=== PATIENT | male | born 1960 | race Caucasian/White ===

== ENCOUNTER → 2016-09-23 | Outpatient (CLI) | payer OTHER | END | disposition home or self-care (01) | LOC: C.LAB 11:36 | DX: Z02.83 Encounter for blood-alcohol and blood-drug test (principal) ==

== ENCOUNTER 2022-08-27 09:25 | Observation (INO) ==
--- NOTE | 2022-06-16 10:57 | PAT Medication Instructions ---
Medication Instructions Date of Service June 16, 2022 Home Medications acetaminophen 500 mg tablet 500 mg PO QID PRN Pain metoprolol succinate 50 mg tablet,extended release 24 hr 50 mg PO QAM olmesartan 20 mg tablet 20 mg PO QAM DO NOT take the morning of surgery olmesartan 20 mg tablet 20 mg PO QAM Take morning of surgery With a small sip of water, OTHERWISE NOTHING TO EAT OR DRINK AFTER MIDNIGHT: acetaminophen 500 mg tablet 500 mg PO QID PRN Pain (if needed) metoprolol succinate 50 mg tablet,extended release 24 hr 50 mg PO QAM Other Notes If you have any questions please call us at [phone] or [phone] or [phone] or [phone]
--- NOTE | 2022-06-19 10:35 | Anesthesiology Consultation ---
Date of Service June 19, 2022 Assessment & Plan (1) Encounter for pre-operative examination: - awaiting PCP clearance. - pt reports upcoming PCP clearance to be scheduled himself per pt. - excessive alcohol use: 6 beers nightly. - Outpatient joint assessment: Patient is currently scheduled for inpatient pathway. If re-evaluated pending system levels during current pandemic/surgeon requests outpatient pathway, patient is not recommended candidate for outpatient joint program from anesthesia standpoint. Chart Review Chart Review: Pending: Refer to Additional Notes / Consult section and Patient seen in Pre Admission Testing Teaching & Discussion Pre-Anesthesia Teaching/Discussion Notes: Instructed NPO after midnight before surgery, except medications with 15 cc of water. Medication instructions provided according to the PAT guidelines. History Surgery Operation Date: 07/29/22 08:50 Proposed Procedures p Right Total Knee Arthroplasty - Uday Tomas MD Height/Weight Height: 5 ft 10 in Weight: 61.3 kg Allergies Allergy/AdvReac Type Severity Reaction Status Date / Time No Known Allergies Allergy Verified 06/16/22 07:29 Medications Home Medications Medication Instructions Recorded Confirmed Last Taken acetaminophen 500 mg tablet 500 mg PO QID PRN Pain 06/16/22 06/16/22 Unknown metoprolol succinate 50 mg 50 mg PO QAM 06/16/22 06/16/22 Unknown tablet,extended release 24 hr olmesartan 20 mg tablet 20 mg PO QAM 06/16/22 06/16/22 Unknown Past Medical History Medical History (Updated 06/19/22 @ 10:32 by Jessica Hastings PA-C) Hypertension Patient denies h/o stroke, seizures, heart attack, heart failure, DM, blood clots or blood transfusions. Exercise / Class Metabolic Activity II 4-5 Yardwork/Stairs/Walk up hill (SOB with 1 FOS, ongoing x 2 years; denies change or worsening; denies chest discomfort) Past Family History Family History Mother Heart murmur Father Dementia Parkinson disease Past Surgical History Surgical History Hx of colonoscopy Past Anesthesia History No Hx of Anesthesia Complications and No Family Hx of Anesthesia Complications History of PONV No Hx of PONV and No Hx of Motion Sickness Social History Smoking Status: Current every day smoker (advised) tobacco type: cigarettes Smoking cigarettes per day: 10 Do You Dip or Chew Tobacco: Yes (1 CAN/1 WEEK; ADVISED) Hx Alcohol Use: Yes Alcohol type: beer alcohol intake frequency: 3 or more drinks per day (6 beers nightly; denies h/o alcohol withdrawal seizures or DTs) Hx Substance Use: No substance use type: does not use Review of Systems Occasional chronic cough, denies change or worsening. Improving with reduction in smoking. Patient denies chest pain, snoring, witnessed apneas, reflux, fever, chills, or palpitations. Physical Exam Vital Signs Vitals BP 160/92 P 75 TEMP 98.6 SP02 98% on RA RESP 17 Physical Alert, oriented and responding appropriately throughout visit Full cervical extension range of motion without pain TMD 3.5 finger breadths Mallampati Score 2 Dentition: full upper and lower dentures Lungs: normal respiratory effort. Good air movement, clear throughout to auscultation, no adventitious breath sounds Cardiac: regular rate and rhythm, no murmurs noted Carotid arteries: negative bruit bilat Lab Results Anesthesia Preop Results Results Anesthesia Widget: WBC 4.00 K/ul (4.8-10.8) L 06/19/22 Hgb 14.0 g/dl (14.0-18.0) 06/19/22 Hct 38.9 % (42.0-52.0) L 06/19/22 Plt 273 K/uL (130-400) 06/19/22 Na 131 mmol/L (136-145) L 06/19/22 K 4.0 mmol/L (3.5-5.1) 06/19/22 Cl 95 mmol/L (98-107) L 06/19/22 CO2 28 mmol/L (21-32) 06/19/22 BUN 8 mg/dl (6-23) 06/19/22 Creat 0.73 mg/dl (0.6-1.4) 06/19/22 Glucose Level 145 mg/dl (70-99(Fasting)) H 06/19/22 PT 10.9 Seconds (9.0-12.0) 06/19/22 PTT 27.4 Seconds (21.0-31.0) 06/19/22 INR 1.0 (0.9-1.1) 06/19/22 Blood Type A Positive 06/19/22 Antibody Screen NEGATIVE 06/19/22 Testing Electrocardiogram Date: 06/19/22 NSR, rate 70 bpm Chest X-Ray Date: 06/19/22 No lines and tubes are seen. The cardiomediastinal silhouette is normal. The lungs are clear. No evidence of pleural effusion or pneumothorax. IMPRESSION: No acute chest disease. COVID-19 Risk Screen Screening Information COVID-19 Screen Date: 06/19/22 Exposure 21 Days Family/Household +COVID Last 21 Days: No Exposure 10 Days Any COVID Exposure Last 10 Days: No Symptoms Last 10 Days Experienced COVID Sx Last 10 Days: No + COVID 0-90 Days COVID + in Last 0-90 Days: No
[~2022-08-27 09:25] MED LIST: ACETAMINOPHEN 500 MG TAB PO SCH; BUPIVACAINE 0.5 % 5 MG/1 ML PF 10ML VIAL ONE; BUPIVACAINE LIPOSOME/PF 266 MG, BUPIVACAINE/EPINEPHRINE 50 ML, SODIUM CHLORIDE 0.9% PF ... INFIL SCH; CeleBREX 200 MG CAP PO SCH; EPINEPHrine INJ 1 MG/ML AMP ONE; FAMOTIDINE 20 MG TAB PO SCH; LR 500ML BOLUS, THEN 15ML/HR IV SCH; LR 60ML/HR IV SCH; METOCLOPRAMIDE HCL 10 MG TABLET PO SCH; ROPIVACAINE 0.5% 5 MG/ML 30 ML VIAL ONE; Scopolamine 1 MG TDSY TD SCH; TRANEXAMIC ACID 1,000 MG **IV Intra-op IV SCH; ceFAZolin 2000MG 2,000 MG/15 ML SYR IV SCH; dexAMETHasone 4 MG TAB PO SCH
[2022-08-27 09:54] LABS: Basophils # (auto) 0.03 K/uL (0-0.2); Basophils % (auto) 0.6 %; Eosinophils # (auto) 0.04 K/uL (0-0.50); Eosinophils % (auto) 0.8 %; Hematocrit (blood only) 42.8 % (42.0-52.0); Hemoglobin 14.9 g/dl (14.0-18.0); Immature Granulocytes # (auto) 0.03 K/uL (0.01-0.20); Immature Granulocytes % (auto) 0.6 %; Lymphocytes # (auto) 2.09 K/uL (1.2-3.4); Lymphocytes % (auto) 39.4 %; Mean Corpuscular Hemoglobin 32.7 pg (25.0-34.0); Mean Corpuscular Hgb Conc 34.8 g/dL (32.0-36.0); Mean Corpuscular Volume 93.9 fL (80.0-100.0); Mean Platelet Volume 9.1 fL (9.4-12.4); Monocytes # (auto) 0.56 K/uL (0.11-0.59); Monocytes % (auto) 10.5 %; Neutrophils # (auto) 2.56 K/uL (1.40-6.50); Neutrophils % (auto) 48.1 %; Platelet Count 279 K/uL (130-400); RDW Standard Deviation 44.4 fL (36.4-46.3); Red Blood Count 4.56 M/uL (4.70-6.10); White Blood Count 5.31 K/ul (4.8-10.8)
[2022-08-27 10:11] LABS: Calcium 9.3 mg/dl (8.6-10.3); Creatinine Clr Calc Pharmacy 93.2 ml/min; Est GFR (Non-African American) 100.1 ml/min; Potassium 3.8 mmol/L (3.5-5.1)
[2022-08-27 10:25] LABS: INR 1.1 (0.9-1.1); Partial Thromboplastin Time 27.3 Seconds (21.0-31.0); Prothrombin Time 11.8 Seconds (9.0-12.0)
--- NOTE | 2022-08-27 11:11 | History & Physical Bridge Note ---
Date of Service August 27, 2022 History & Physical Bridge Note I have examined the patient, reviewed the History & Physical and in the interval since the performance of the History & Physical I have noted the following changes of clinical significance: no changes noted
[2022-08-27] MEDS ORDERED: MIDAZOLAM HCL 1 MG/ML 2ML VIAL ONE ×2 (12:35→12:40)
[2022-08-27] MEDS ORDERED: PROPOFOL IV EMULSION 10 MG/ML 20 ML VIAL IV ONE (12:35)
[2022-08-27] MEDS ORDERED: fentaNYL citrate PF 100 MCG/2 ML VIAL ONE (12:35)
[2022-08-27] MEDS ORDERED: DEXAMETHASONE SOD INJ 4 MG/ML VIAL ONE (12:35)
[2022-08-27] MEDS ORDERED: ONDANSETRON INJ 2 MG/ML 2 ML VIAL ONE (12:35)
[2022-08-27] MEDS ORDERED: LIDOCAINE 2% 2 ML VIAL/AMP(20MG/ML) INFIL ONE (12:35)
[2022-08-27] MEDS ORDERED: BUPIVACAINE/EPINEPHRINE 0.25% 1:200,000 30 ML VIAL ONE (13:03)
[2022-08-27] MEDS ORDERED: SODIUM CHLORIDE 0.9% PF INJ 10 ML VIAL ONE ×2 (13:03→13:16)
[2022-08-27] MEDS ORDERED: BUPIVACAINE LIPOSOME 1.3% 266 MG/20 ML VIAL ONE (13:04)
--- NOTE | 2022-08-27 13:04 | Anesthesiology Consultation ---
Date of Service August 27, 2022 Assessment & Plan Chart Review Chart Review: Acceptable Risk for Surgery and Patient NOT seen in Pre Admission Testing Consults Requested none ASA ASA3 Proposed Anesthesia Anesthesia Type: MAC Spinal Regional Regional Laterality: Right Site: Adductor Canal Risk / Benefits Reviewed With: PT / POA / Parent / Guardian, Accepts Plan and Informed Consent Obtained History Surgery Operation Date: 07/29/22 07:00 Proposed Procedures p Right Total Knee Arthroplasty - Uday Tomas MD Operation Date: 08/27/22 12:00 Proposed Procedures p Right Total Knee Arthroplasty - Uday Tomas MD Height/Weight Height: 5 ft 10 in Weight: 62 kg Allergies Allergy/AdvReac Type Severity Reaction Status Date / Time No Known Allergies Allergy Verified 08/27/22 09:38 Medications Home Medications Medication Instructions Recorded Confirmed Last Taken acetaminophen 500 mg tablet 500 mg PO QID PRN Pain 06/16/22 08/27/22 08/26/22 08:00 metoprolol succinate 50 mg 50 mg PO QAM 06/16/22 08/27/22 08/26/22 08:00 tablet,extended release 24 hr olmesartan 20 mg tablet 40 mg PO QAM 07/23/22 08/18/22 Unknown amlodipine 5 mg tablet 5 mg PO QPM 08/18/22 08/27/22 08/26/22 08:00 atorvastatin 40 mg tablet 40 mg PO QPM 08/18/22 08/27/22 Unknown acetaminophen 500 mg tablet 1,000 mg PO TID pain 30 days #180 08/25/22 08/26/22 08:00 (Tylenol Extra Strength) tabs aspirin 81 mg tablet,delayed 81 mg PO BID 45 days #90 tabs 08/25/22 Unknown release (Cm Low Dose Aspirin) cefadroxil 500 mg capsule 500 mg PO BID 7 days #14 caps 08/25/22 Unknown ketorolac 10 mg tablet 10 mg PO Q6 pain 5 days #20 tabs 08/25/22 Unknown ondansetron 4 mg disintegrating 4 mg PO Q8 PRN nausea #20 tabs 08/25/22 Unknown tablet oxycodone 5 mg tablet 5 - 10 mg PO Q6 PRN pain #40 tabs 08/25/22 Unknown sennosides 8.6 mg tablet (Senokot) 8.6 mg PO BID prevent constipation 08/25/22 Unknown 14 days #28 tabs tamsulosin 0.4 mg capsule (Flomax) 0.4 mg PO DAILY #7 caps 08/25/22 Unknown Active Medications Generic Name Dose Route Start Last Admin Trade Name Landry PRN Reason Stop Dose Admin Acetaminophen 1,000 mg 08/27/22 06:00 08/27/22 09:58 Acetaminophen 500 Mg Tab PO 08/27/22 18:00 1,000 mg PREOP ELI Administration Celecoxib 200 mg 08/27/22 06:00 08/27/22 09:58 Celebrex 200 Mg Cap PO 08/27/22 18:00 200 mg PREOP ELI Administration Dexamethasone 8 mg 08/27/22 06:00 08/27/22 09:59 Dexamethasone 4 Mg Tab PO 08/27/22 18:00 8 mg PREOP ELI Administration Famotidine 20 mg 08/27/22 06:00 08/27/22 09:59 Famotidine 20 Mg Tab PO 08/27/22 18:00 20 mg PREOP ELI Administration Lactated Ringer's 1,000 mls @ 15 mls/hr 08/27/22 06:00 08/27/22 10:10 Lr IV 08/27/22 18:00 15 mls/hr .Q24H ELI Administration Lactated Ringer's 1,000 mls @ 60 mls/hr 08/27/22 06:00 08/27/22 10:10 Lr IV 08/27/22 22:39 Not Given .[id number] ELI Metoclopramide HCl 10 mg 08/27/22 06:00 08/27/22 09:59 Metoclopramide Hcl 10 Mg Tablet PO 08/27/22 18:00 10 mg PREOP ELI Administration Scopolamine 1 mg 08/27/22 06:00 08/27/22 09:59 Scopolamine 1 Mg Tdsy TD 08/27/22 18:00 1 mg PREOP ELI Administration NPO Date Last Intake of Fluids: 08/26/22 Time Last Intake of Fluids: 23:00 Date Last Intake of Solids: 08/26/22 Time Last Intake of Solids: 21:00 Past Medical History Medical History Alcohol ingestion, more than 4 drinks/day Atherosclerosis of abdominal aorta HLD (hyperlipidemia) Hypertension Osteoarthritis Smoker Exercise / Class Metabolic Activity II 4-5 Yardwork/Stairs/Walk up hill Past Family History Family History Mother Heart murmur Father Dementia Parkinson disease Past Surgical History Surgical History Hx of colonoscopy Past Anesthesia History No Hx of Anesthesia Complications and No Family Hx of Anesthesia Complications History of PONV No Hx of PONV and No Hx of Motion Sickness Social History Smoking Status: Current every day smoker tobacco type: cigarettes Smoking cigarettes per day: 10 Do You Dip or Chew Tobacco: Yes (1 can/wk; advised) Hx Alcohol Use: Yes Alcohol type: beer alcohol intake frequency: 3 or more drinks per day Hx Substance Use: No substance use type: does not use Physical Exam Vital Signs Last Vital Signs Temp 36.6 C 08/27/22 09:42 Pulse 62 08/27/22 09:42 Resp 21 08/27/22 09:42 BP 205/109 H 08/27/22 09:42 Pulse Ox 98 08/27/22 09:42 O2 Del Method Room Air 08/27/22 09:42 Constitutional + cachectic; no acute distress ENMT Mouth: + dentition abnormality and + edentulous Thyromental Distance: > or= 3.5 Finger Breadths Mallampati Class: II Neck normal visual inspection, trachea midline and + facial hair; neck extension not limited Respiratory normal respiratory effort Auscultation: + diminished lung sounds Cardiovascular Rate/Rhythm: regular rate and regular rhythm Heart Sounds: no murmur Vessels: no carotid bruit Musculoskeletal Spine: normal cervical ROM and no pain with cervical ROM Extremities: extremities normal to inspection; full ROM of extremities Neurologic moves all extremities Motor/Sensory: no sensory deficit Psychiatric Orientation: alert and oriented x 3 Testing Laboratory Results 08/27/22 09:37 08/27/22 09:37 PT 11.8 Seconds (9.0-12.0) 08/27/22 09:37 INR 1.1 (0.9-1.1) 08/27/22 09:37 APTT 27.3 Seconds (21.0-31.0) 08/27/22 09:37
[2022-08-27] MEDS ORDERED: ePHEDrine sulfate 50 MG/ML AMP IV PRN (13:23)
[2022-08-27] MEDS ORDERED: ATROPINE SULFATE 0.1 MG/ML 10ML SYR IV PRN (13:23)
--- NOTE | 2022-08-27 15:19 | Operative Report ---
PG Post Operative Report Pre & Post Diagnosis Operation Date: 08/27/22 12:00 Pre-Op Diagnosis: Right Knee Degenerative Joint Disease Post-Op Diagnosis: Right Knee Degenerative Joint Disease I identified the patient and participated in the time-out.: Yes Procedure Operation Date: 08/27/22 12:00 Actual Procedures p Right Total Knee Arthroplasty, Cemented(Right) - Uday Tomas MD Surgeon Uday Tomas MD [employer] Supervisor Alan Barron PA-C Estimated Blood Loss 50 Findings Consistent with Post-Op Diagnosis Specimens Right knee sent for pathology Anesthesia Type Spinal MAC Complications none Disposition Accompanied Patient To Recovery: No Indications Patient 62-year-old gentleman said a long history of progressive increased pain discomfort in his right knee. And can failed conservative measures of management. X-rays show advanced right knee DJD. Had a chronic PCL and posterior lateral corner deficiency. He had instability in his knee. He was indicated for surgical treatment. Description of Procedure Operative implants consist of: 1 Biomet Vanguard size 72.5 right posterior stabilized femoral component. 2. Biomet size 79 tibial tray. 3. 12 mm posterior stabilized polyethylene plus insert. 4. 34 x 8 and half all poly patella. Patient was taken the operating, identified, placed on the operating table supine position. All contact areas were appropriately padded. IV antibiotics provided by the anesthesia team. A spinal anesthetic and abductor canal block had been divided holding area. Right Tetrick was then placed. The right lower extremities then prepped and draped in usual sterile fashion. The right leg was elevated exsanguinated with use of an Esmarch and the tourniquet was placed at 300 mmHg. An anterior approach to the right knee was then performed through a longitudinal incision centered over the patella. Sharp dissection scalp through subcutaneous tissue down to the extensor mechanism. A medial parapatellar arthrotomy incision was made. Some subperiosteal dissection was carried out medially. The fat pad was dissected beneath patella tendon. Lateral patellofemoral ligament was released. Patella subluxated laterally and the knee was flexed. The osteophytes taken on distal femur. The ACL and PCL were then released from distal femur the tibia subluxated anteriorly. The external tibial alignment jig was then placed in the interface the tibia and adjusted 14 mm medially. Proximal tibial cut was made to move out a millimeter or 2 of bone from the medial side. The medial tibia was then sized to a size 79. Some osteophytes were taken off medial and posterior medially. Attention drawn the femur. The distal femur and the sharp drill bit and intramedullary canal was suction. A right 6 degree valgus cutting guide was placed. Distal femoral cutting block was pinned in place. Distal femoral cut was made to take an additional 3 mm of bone off distal femur. The femur was then sized to a size 72.5. The AP cutting block was pinned parallel to the epicondylar axis which was 3 degrees of external rotation. The anterior cut, anterior chamfer, posterior cut, posterior chamfer cuts were made. The box cutting guide was placed in just slight lateral box cut was made. The knee was flexed. The remnants of the medial lateral menisci were excised. The osteophytes taken off the posterior aspect of femur. A trial femoral component was placed. Tibial tray was pinned in maximum external rotation and the drill and stem punch were used to create defect in proximal tibia for the tibial tray. The knee was then trialed and the 12 mm insert fit most appropriately. Due to his chronic PCL and posterior lateral instability I did elect to place a PS plus insert just to maximize his stability. His knee appeared stable with the PS insert but I elected to increase constraint for precautionary reasons. Attention drawn the patella. The patella was cleaned of all soft tissue. Patella thickness measured 25 mm in thickness cut down to 14. Was sized to a size 34 patella. The lug holes were drilled for the 34 patella. Lateral osteophytes removed. Patella button was placed. Knee was taken through range of motion and the patella tracked nicely with no thumbs test. Attention drawn to placing permanent components. Trial components were removed. Bone plug was placed in the distal femur limit blood loss. Double batch Palacos G cement was mixed. Biomet Vanguard size 72.5 right posterior stabilized femoral component, size 79 tibial tray, a 12 mm PS plus insert, and a 34 x 8 and half all Paller patella then cemented in place. Knee was brought out in full extension till cement hardened. Final cement check was then performed. The pericapsular tissues were injected with total of 100 cc of combination of 20 cc of Exparel, 30 cc normal saline, 50 cc of quarter percent Marcaine with epinephrine. Patient did receive 1 g tranexamic acid. The tourniquet was then let down for final tourniquet time 60 minutes. Hemostasis assured use electrocautery. The extensor mechanism closed with combination 1 PDS suture and 1 Vicryl suture in a [id number] fashion. The extensor mechanism checked found to be intact with subcutaneous tissue then closed with 2 Dexon suture in buried erupted fashion skin was closed skin jose alfredo. Leg was then cleaned and dried and sterile dressing applied Xeroform, 4 fours, sterile cast padding, Tarun bandage were applied. Patient then transferred to the recovery in stable condition. Patient tolerated procedure well and there were no complications. Alan Barron, my physician high school assistant football coach, was present for the entire procedure. His assistance was essential and required for appropriate patient positioning, prepping and draping, surgical exposure, performing the technical details of the operation, placement the implants, closure of the wound, and placement of the sterile bandage. I attest to the content of the Intraoperative Record and any orders documented therein. Any exceptions are noted below.
--- NOTE | 2022-08-27 15:46 | XRay Report ---
XR knee RT 1 or 2V routine CLINICAL HISTORY: Postoperative evaluation. COMPARISON: Knee radiographs July 03, 2022. FINDINGS: Alignment of the total right knee arthroplasty is anatomic. There is no periprosthetic fra cture or unexpected radiopaque foreign body. There are skin jose alfredo. IMPRESSION: Expected findings following total right knee arthroplasty. ACT 112: Negative or not required by law. Electronically signed by: Chris Carvalho M.D. 08/27/2022 3:45 PM
--- NOTE | 2022-08-27 16:25 | Anesthesiology Progress Note ---
Date of Service August 27, 2022 Anesthesia Post Procedure Vital Signs Vital Signs: Temp Pulse Pulse Resp BP Pulse Ox O2 Del Method 08/27/22 16:15 36.4 C L 52 L 16 151/83 H 95 Room Air 08/27/22 16:05 50 L 16 138/82 95 Room Air 08/27/22 15:55 57 L 19 153/77 H 96 Room Air 08/27/22 15:45 60 18 138/97 95 Room Air 08/27/22 15:35 47 L 18 142/74 H 99 Oxymask 08/27/22 15:25 50 L 15 129/72 100 Oxymask 08/27/22 15:18 36.6 C 64 18 125/81 99 Oxymask 08/27/22 09:42 Room Air 08/27/22 09:42 36.6 C 62 21 205/109 H 98 Room Air O2 Flow Rate 08/27/22 16:15 08/27/22 16:05 08/27/22 15:55 08/27/22 15:45 08/27/22 15:35 2 08/27/22 15:25 4 08/27/22 15:18 6 08/27/22 09:42 08/27/22 09:42 Pain Intensity Right Knee: Pain Intensity: 4 Transfer of Care Handoff Completed per policy Notes Mental Status: alert / awake / arousable Patient Amnestic to Procedure: Yes Nausea / Vomiting: adequately controlled Pain: adequately controlled Airway Patency, RR, SpO2: stable & adequate BP & HR: stable & adequate Hydration State: stable & adequate Neuraxial Anesthesia: was administered and sensory block is resolving Anesthetic Complications: no major complications apparent and Pt Satisfied with anesthetic care
[2022-08-27] MEDS ORDERED: bisacodyL 10 MG SUPP PR PRN (16:48)
[2022-08-27] MEDS ORDERED: chlordiazePOXIDE HCl 25 MG CAP PO PRN (16:48)
[2022-08-27] MEDS ORDERED: HYDROmorphone INJ 0.5 MG/0.5 ML SYR IV PRN (16:48)
[2022-08-27] MEDS ORDERED: ALUMINUM/MAGNESIUM SUSP 30 ML UDC PO PRN (16:48)
[2022-08-27] MEDS ORDERED: ONDANSETRON INJ 2 MG/ML 2 ML VIAL IV PRN (16:48)
[2022-08-27] MEDS ORDERED: NALOXONE HCL 0.4 MG/1 ML VIAL/CARP IV PRN (16:48)
[2022-08-27] MEDS ORDERED: SODIUM CHLORIDE 0.9% 1000ML 1,000 ML IV SCH (16:48)
[2022-08-27] MEDS ORDERED: MAGNESIUM HYDROXIDE SUSP 30 ML UDC PO PRN (16:48)
[2022-08-27] MEDS ORDERED: METOCLOPRAMIDE HCL INJ 5 MG/ML 2 ML VIAL IV PRN (16:48)
[2022-08-27] MEDS: Scopolamine CHECK PATCH PLACEMENT SCH (17:05)
[2022-08-27] MEDS: ASCORBIC ACID 500 MG TAB PO SCH (18:08)
[2022-08-27] MEDS: KETOROLAC 30 MG/ML VIAL IV SCH (18:08)
[2022-08-27] MEDS: DOCUSATE SODIUM 100 MG CAP PO SCH (20:36)
[2022-08-27] MEDS: ASPIRIN 81 MG ECTAB PO SCH (20:36)
[2022-08-27] MEDS: ACETAMINOPHEN 500 MG TAB PO SCH (20:36)
[2022-08-27] MEDS: ceFAZolin 1000MG 1,000 MG/7.5 ML SYR IV SCH (20:41)
[2022-08-27] MEDS ORDERED: SENNA 8.6 MG TAB PO SCH ×2 (21:00)
[2022-08-27] MEDS ORDERED: amLODIPine BESYLATE 5 MG TAB PO SCH (21:00)
[2022-08-27] MEDS ORDERED: ATORVASTATIN 40 MG TAB PO SCH (21:00)
[2022-08-27] MEDS ORDERED: TRANEXAMIC ACID / 0.7% NACL 1,000 MG/100 ML BAG IV SCH (21:15)
[2022-08-27] MEDS: oxyCODONE HCL IR 5 MG TAB (IMMEDIATE RELEASE) PO PRN (22:33)
[2022-08-28] MEDS: KETOROLAC 30 MG/ML VIAL IV SCH ×2 (00:20→05:55)
[2022-08-28] MEDS: Scopolamine CHECK PATCH PLACEMENT SCH ×2 (00:21→07:45)
[2022-08-28] MEDS: ceFAZolin 1000MG 1,000 MG/7.5 ML SYR IV SCH (05:55)
[2022-08-28] MEDS: oxyCODONE HCL IR 5 MG TAB (IMMEDIATE RELEASE) PO PRN (05:57)
[2022-08-28 07:14] LABS: BUN Creatinine Ratio 14.6 (10-20); Calcium 8.8 mg/dl (8.6-10.3); Est GFR (African American) 110.6 ml/min; Est GFR (Non-African American) 95.4 ml/min; Potassium 3.9 mmol/L (3.5-5.1)
[2022-08-28 07:24] LABS: Hematocrit (blood only) 33.7 % (42.0-52.0); Hemoglobin 11.5 g/dl (14.0-18.0); Mean Corpuscular Hemoglobin 32.6 pg (25.0-34.0); Mean Corpuscular Hgb Conc 34.1 g/dL (32.0-36.0); Mean Corpuscular Volume 95.5 fL (80.0-100.0); Mean Platelet Volume 9.6 fL (9.4-12.4); Platelet Count 239 K/uL (130-400); RDW Coefficient of Variation 12.9 % (11.5-14.5); Red Blood Count 3.53 M/uL (4.70-6.10); White Blood Count 7.88 K/ul (4.8-10.8)
[2022-08-28] MEDS: ACETAMINOPHEN 500 MG TAB PO SCH (07:43)
[2022-08-28] MEDS: ASPIRIN 81 MG ECTAB PO SCH (07:45)
[2022-08-28] MEDS: DOCUSATE SODIUM 100 MG CAP PO SCH (07:45)
[2022-08-28] MEDS: ASCORBIC ACID 500 MG TAB PO SCH (07:45)
[2022-08-28] MEDS ORDERED: dexAMETHasone 10 MG in SYRINGE 0 ML IV SCH (08:00)
--- NOTE | 2022-08-28 08:08 | Progress Notes ---
DATE OF SERVICE: 08/28/2022. SUBJECTIVE: A 62-year-old gentleman, postoperative day 1 from right knee replacement. He is doing p retty well. He had pretty good night. Pain is controlled. No chest pain or shortness of breath. N ot feeling dizzy or lightheaded. OBJECTIVE: VITAL SIGNS: Temperature 36.8. Vital signs are stable. GENERAL: Shows a pleasant middle-aged male. He is sitting up in his bedside chair, looks quite comf ortable. EXTREMITIES: Examination of the right leg reveals the leg to be well aligned. Dressing is clean, dr y and intact. He can dorsiflex and plantarflex his foot appropriately. He is neurologically intact. LABORATORY DATA: Hemoglobin is pending. Labs are pending. ASSESSMENT: A 62-year-old gentleman, postoperative day 1 from right knee replacement, doing well. P ain is controlled. He is neurologically intact. PLAN: 1. DVT prophylaxis includes thigh-high TEDs, SCDs, and aspirin twice a day. 2. PT/OT, weightbear as tolerated. Right total knee protocol. 3. Pain control, doing okay with current pain regimen. 4. Disposition: Plan to discharge to home with some home health. He is going to have some friends to come and assist in his care. Job ID: [id number]
[2022-08-28] MEDS ORDERED: LOSARTAN POTASSIUM 50 MG TAB PO SCH (09:00)
[2022-08-28] MEDS ORDERED: NICOTINE 14 MG/24 HR PATCH TD SCH (09:00)
[2022-08-28] MEDS ORDERED: METOPROLOL SUCC 50MG EXT REL TAB PO SCH (09:00)
[2022-08-28] MEDS ORDERED: THIAMINE HCL 50 MG TABLET PO SCH (09:00)
[2022-08-28] MEDS ORDERED: MULTIVITAMIN TAB PO SCH (09:00)
[2022-08-28] MEDS ORDERED: FOLIC ACID 1 MG TAB PO SCH (09:00)
[2022-08-28] MEDS ORDERED: TAMSULOSIN HCL 0.4 MG CAP PO SCH (09:00)
--- NOTE | 2022-09-02 10:24 | Discharge Summary ---
Date of Service September 02, 2022 Discharge Data Procedures Performed Operation Date: 08/27/22 12:00 Actual Procedures p Right Total Knee Arthroplasty, Cemented(Right) - Uday Tomas MD Hospital Course (1) Status post total right knee replacement: This is a 62 year old patient admitted on 08/27/22 and underwent total knee arthroplasty. He tolerated the procedure well and there were no complications. Transferred to the PACU post op and later to the orthopedic floor for further care. He was given ancef for antibiotic prophylaxis. He was also given MADHU stockings, SCDs, and aspirin for DVT prophylaxis. Hemoglobin, hematocrit, and vital signs were monitored during his hospital stay and remained stable. Did not require any blood transfusions. There were no complications during his hospital stay. By post op day #1 the patient was tolerating a regular diet, pain was reasonably controlled with oral pain medicine, and he was participating in physical therapy. On post op day #1 the patient was discharged home and set up with home health care. He was given printed discharge instructions including prescriptions for extra strength tylenol, aspirin, cefadroxil, ketorolac, zofran, oxycodone, senokot, and flomax. Continue physical therapy, weight bearing as tolerated. Continue MADHU stockings. Follow up approximately 2 weeks post op or sooner if there are problems or concerns. Coding Level of Care Code None Diagnoses Status post total right knee replacement Z96.651
== END 2022-08-28 11:22 | disposition home health service (06) ==
LOC: ASU 09:25 → 3E 09:25